=== PATIENT | male | born 1975 | race Caucasian/White ===

== ENCOUNTER 2019-09-20 19:35 | Inpatient (IN) | payer MEDICARE, OTHER ==
[~2019-09-20] VITALS: Ht 188 cm; Wt 101.2 kg
[2019-09-20] MEDS ORDERED: methylPREDNISolone SOD SUCC 125 MG/2 ML VL IV ONE (20:15)
[2019-09-20] MEDS ORDERED: cefTRIAXone 1GM/50ML D5W 50 ML IV ONE (21:30)
[2019-09-20 22:00] LABS: Basophils # (auto) 0 10 ^3/uL (0-0.2); Basophils % (auto) 0.3 % (0.0-2.0); Eosinophils # (auto) 0.2 10 ^3/uL (0-0.8); Eosinophils % (auto) 1.3 % (0.0-7.0); Hematocrit 39.7 % (41.0-53.0); Hemoglobin 13.7 g/dL (13.5-17.5); Lymphocytes % (auto) 7.5 % (10.0-50.0); Mean Corpuscular Hemoglobin 32.3 pg (28.0-32.0); Mean Corpuscular Hgb Conc. 34.5 g/dL (32.0-36.0); Mean Corpuscular Volume 93.5 fL (80.0-100.0); Monocytes # (auto) 0.7 10 ^3/uL (0-1.3); Neutrophils # (auto) 11.9 10 ^3/uL (1.6-8.6); Neutrophils % (auto) 85.9 % (37.0-80.0); Nucleated Red Blood Cells % 0.1 %; Platelet Count (auto) 365 10^3/uL (140-450); Red Blood Cells 4.25 10^6/uL (4.5-5.90); Red Cell Distribution Width 14.2 % (11.8-14.3); White Blood Cell 13.9 10^3/uL (4.4-10.8)
[2019-09-20 22:10] LABS: Alanine Aminotransferase 21 U/L (16-61); Anion Gap 7 (5-15); BUN/Creatinine Ratio 12.4; Blood Urea Nitrogen 11 mg/dL (7-18); Calcium 9.1 mg/dL (8.5-10.1); Carbon Dioxide 29 mmol/L (21-32); Chloride 96 mmol/L (98-107); GFR African American 120 mL/min; GFR Non-African American 99 mL/min; Glucose 95 mg/dL (74-106); Potassium 3.8 mmol/L (3.5-5.1); Sodium 132 mmol/L (136-145)
[2019-09-20 22:17] LABS: Alkaline Phosphatase 91 U/L (45-117); Aspartate Aminotransferase 37 U/L (15-37); Bilirubin, Total 0.6 mg/dL (0.2-1.0); Total Protein 7.8 g/dL (6.4-8.2)
[2019-09-20] MEDS ORDERED: ACETAMINOPHEN 325 MG TAB PO PRN (22:30)
[2019-09-20] MEDS ORDERED: ALBUTEROL SULF 2.5 MG/0.5ML(0.5%) NEB SOLN NEB PRN (22:30)
[2019-09-20] MEDS ORDERED: ONDANSETRON HCL 4 MG/2 ML VIAL IV PRN (22:30)
[2019-09-20] MEDS ORDERED: IPRATROPIUM BROM 0.5 MG/2.5ML INH SOL NEB PRN (22:30)
[2019-09-20] MEDS: HYDROcodone-ACET 5/325MG TAB PO PRN (23:42)
[2019-09-21] VITALS (7 sets, daily range): BP systolic 129–147; BP diastolic 68–87
[2019-09-21] MEDS ORDERED: ASPI81CH43 PO (00:01)
[2019-09-21] MEDS ORDERED: METO-169 PO (00:01)
[2019-09-21] MEDS ORDERED: LISI-706 PO (00:01)
[2019-09-21] MEDS ORDERED: DIVA500T13 PO (06:06)
[2019-09-21] MEDS ORDERED: ROSU20TA14 PO (06:06)
[2019-09-21] MEDS ORDERED: CHOL20007 PO (06:06)
[2019-09-21] MEDS ORDERED: QUET50TA25 PO (06:06)
[2019-09-21] MEDS ORDERED: METO-5 PO (06:06)
[2019-09-21] MEDS ORDERED: VARE1PAK12 PO (06:06)
[2019-09-21 07:35] LABS: Basophils # (auto) 0 10 ^3/uL (0-0.2); Basophils % (auto) 0.1 % (0.0-2.0); Eosinophils # (auto) 0 10 ^3/uL (0-0.8); Hematocrit 42.4 % (41.0-53.0); Hemoglobin 14.5 g/dL (13.5-17.5); Lymphocytes % (auto) 7.9 % (10.0-50.0); Mean Corpuscular Hemoglobin 32.1 pg (28.0-32.0); Mean Corpuscular Hgb Conc. 34.2 g/dL (32.0-36.0); Mean Corpuscular Volume 93.9 fL (80.0-100.0); Monocytes # (auto) 0.5 10 ^3/uL (0-1.3); Neutrophils # (auto) 11.6 10 ^3/uL (1.6-8.6); Nucleated Red Blood Cells % 0.1 %; Platelet Count (auto) 384 10^3/uL (140-450); Red Blood Cells 4.52 10^6/uL (4.5-5.90); Red Cell Distribution Width 14.4 % (11.8-14.3); White Blood Cell 13.2 10^3/uL (4.4-10.8)
[2019-09-21 07:53] LABS: BUN/Creatinine Ratio 17.6; Calcium 10.5 mg/dL (8.5-10.1); Potassium 4.6 mmol/L (3.5-5.1)
[2019-09-21] MEDS ORDERED: HYDR-4833 PO (08:00)
[2019-09-21] MEDS: HYDROcodone-ACET 5/325MG TAB PO PRN (08:03)
[2019-09-21] MEDS: FAMOTIDINE 20 MG TAB PO SCH ×2 (08:03→11:30)
[2019-09-21] MEDS: cefTRIAXone 1GM/50ML D5W 50 ML IV SCH (08:03)
[2019-09-21] MEDS: AZITHROMYCIN 500MG/ 250ML 250 ML IV SCH (11:30)
[2019-09-21] MEDS ORDERED: QUEtiapine FUMARATE 25 MG TAB PO ONE (11:30)
[2019-09-21] MEDS ORDERED: METOPROLOL SUCCINATE XL 50 MG TAB PO ONE (11:30)
[2019-09-21] MEDS ORDERED: ASPirin 81 mg TAB PO ONE (11:30)
[2019-09-21] MEDS ORDERED: LISINOPRIL 20 MG TAB PO ONE (11:30)
[2019-09-21] MEDS ORDERED: HCTZ 25 MG TAB PO ONE (11:30)
[2019-09-21] MEDS ORDERED: ZINC SULFATE 220mg CAP or TAB PO ONE (11:45)
[2019-09-21 11:57] LABS: Magnesium 2.8 mg/dL (1.6-2.6)
[2019-09-21] MEDS ORDERED: ENOXAPARIN SOD 120 MG/0.8 ML SYRINGE SC ONE (12:00)
[2019-09-21] MEDS: HYDROcodone-ACET 10/325MG TAB PO PRN ×2 (12:18→20:20)
[2019-09-21] MEDS ORDERED: ALBUTEROL SULF HFA 90MCG INH 200DOSE IN SCH (14:00)
[2019-09-21] MEDS ORDERED: IOHEXOL 350 MG/ML 100ML IJ ONE (18:16)
[2019-09-21 18:41] LABS: Urine WBC None Seen /hpf (0 - 3)
[2019-09-21 18:51] LABS: Urine Bacteria NONE SEEN /hpf (None Seen); Urine Blood Negative /uL (Negative); Urine Mucus FEW (None Seen); Urine Specific Gravity 1.008 (1.001-1.035)
[2019-09-21 19:07] LABS: Amphetamine Screen, Urine NEGATIVE (NEGATIVE); Barbiturate Scree,Urine NEGATIVE (NEGATIVE); Benzodiazephine Screen, Urine NEGATIVE (NEGATIVE); Cannabinoid Screen, Urine NEGATIVE (NEGATIVE); Cocaine Screen, Urine NEGATIVE (NEGATIVE); Opiate Scree,Urine NEGATIVE (NEGATIVE); Phencyclidine Screen, Urine NEGATIVE (NEGATIVE)
[2019-09-21] MEDS: QUEtiapine FUMARATE 25 MG TAB PO SCH (22:00)
[2019-09-21] MEDS: ENOXAPARIN SOD 120 MG/0.8 ML SYRINGE SC SCH (22:12)
[2019-09-21] MEDS: TEMAZEPAM 15 MG CAP PO PRN (22:12)
[2019-09-22] MEDS: HYDROcodone-ACET 10/325MG TAB PO PRN ×5 (02:46→22:02)
[2019-09-22 05:00] VITALS: BP 142/83
[2019-09-22] MEDS: IPRATROPIUM BROM 0.5 MG/2.5ML INH SOL NEB SCH ×4 (06:24→18:00)
[2019-09-22] MEDS: ALBUTEROL SULF 2.5 MG/0.5ML(0.5%) NEB SOLN NEB SCH ×4 (06:24→18:00)
[2019-09-22 08:26] LABS: Hematocrit 42.1 % (41.0-53.0); Hemoglobin 14.4 g/dL (13.5-17.5); Mean Corpuscular Hemoglobin 31.9 pg (28.0-32.0); Mean Corpuscular Hgb Conc. 34.3 g/dL (32.0-36.0); Mean Corpuscular Volume 93.2 fL (80.0-100.0); Platelet Count (auto) 434 10^3/uL (140-450); Red Blood Cells 4.52 10^6/uL (4.5-5.90); Red Cell Distribution Width 14.1 % (11.8-14.3); White Blood Cell 13.7 10^3/uL (4.4-10.8)
[2019-09-22 08:41] LABS: Band Neutrophils % (manual) 0; Basophils % (manual) 0 (0.0-2.0); Blast Cells 0; Metamyelocytes % 0; Myelocytes % 0; Promyelocytes % 0; Reactive Lymphocytes 0
[2019-09-22 08:43] LABS: Albumin 3.2 g/dL (3.4-5.0); Calcium 9.9 mg/dL (8.5-10.1); Magnesium 2.6 mg/dL (1.6-2.6); Potassium 3.8 mmol/L (3.5-5.1)
[2019-09-22 08:48] LABS: Bilirubin, Total 0.4 mg/dL (0.2-1.0); Total Protein 8.3 g/dL (6.4-8.2)
[2019-09-22 09:06] VITALS: BP 116/54
[2019-09-22] MEDS ORDERED: HCTZ 25 MG TAB PO SCH (10:00)
[2019-09-22 10:21] LABS: Eosinophils % (manual) 1 (0-7); Lymphocytes % (manual) 23 (10.0-50.0); Monocytes % (manual) 5 (0-12)
[2019-09-22] MEDS: cefTRIAXone 1GM/50ML D5W 50 ML IV SCH (10:52)
[2019-09-22] MEDS: ENOXAPARIN SOD 120 MG/0.8 ML SYRINGE SC SCH (10:54)
[2019-09-22] MEDS: DexAMETHasone SOD PHOS 4 MG/1ML SDV INJ IV SCH (10:54)
[2019-09-22] MEDS: ZINC SULFATE 220mg CAP or TAB PO SCH (10:55)
[2019-09-22] MEDS: CHOLECALCIFEROL (VITD3) 1,000IU=25mCg TAB PO SCH (10:55)
[2019-09-22] MEDS: ASPirin 81 mg TAB PO SCH (10:55)
[2019-09-22] MEDS: FAMOTIDINE 20 MG TAB PO SCH ×2 (10:55→22:00)
[2019-09-22] MEDS: ASCORBIC ACID 500 MG TAB PO SCH (10:56)
[2019-09-22] MEDS: LISINOPRIL 20 MG TAB PO SCH (10:59)
[2019-09-22] MEDS: METOPROLOL SUCCINATE XL 50 MG TAB PO SCH (10:59)
[2019-09-22] MEDS: AZITHROMYCIN 500MG/ 250ML 250 ML IV SCH (10:59)
[2019-09-22] MEDS: QUEtiapine FUMARATE 25 MG TAB PO SCH ×2 (11:00→22:01)
[2019-09-22 12:07] VITALS: BP 133/82
[2019-09-22] MEDS ORDERED: levoFLOXacin 750MG 150 ML IV ONE (12:30)
[2019-09-22 16:59] VITALS: BP_SYST 137; BP_SYST 161; BP_DIAS 72; BP_DIAS 75; BP_DIAS 92
[2019-09-22] MEDS: LIDOCAINE 5% TOPICAL PATCH TOP SCH (17:10)
[2019-09-22 22:00] VITALS: BP 124/69
[2019-09-22] MEDS: TEMAZEPAM 15 MG CAP PO PRN (22:02)
[2019-09-23] MEDS: ALBUTEROL SULF 2.5 MG/0.5ML(0.5%) NEB SOLN NEB SCH ×5 (00:17→18:53)
[2019-09-23] MEDS: IPRATROPIUM BROM 0.5 MG/2.5ML INH SOL NEB SCH ×5 (00:18→18:53)
[2019-09-23 05:00] VITALS: BP 132/73
[2019-09-23] MEDS: HYDROcodone-ACET 10/325MG TAB PO PRN ×4 (05:06→19:17)
[2019-09-23 05:31] LABS: Hematocrit 42.6 % (41.0-53.0); Hemoglobin 14.5 g/dL (13.5-17.5); Mean Corpuscular Hgb Conc. 34.1 g/dL (32.0-36.0); Mean Corpuscular Volume 93.8 fL (80.0-100.0); Platelet Count (auto) 434 10^3/uL (140-450); Red Blood Cells 4.54 10^6/uL (4.5-5.90); Red Cell Distribution Width 14.3 % (11.8-14.3); White Blood Cell 14.1 10^3/uL (4.4-10.8)
[2019-09-23 05:40] LABS: Basophils % (manual) 0 (0.0-2.0); Blast Cells 0; Metamyelocytes % 0; Myelocytes % 0; Promyelocytes % 0; Reactive Lymphocytes 0
[2019-09-23 05:53] LABS: BUN/Creatinine Ratio 28.1; Calcium 10.1 mg/dL (8.5-10.1); Magnesium 2.8 mg/dL (1.6-2.6); Potassium 4.1 mmol/L (3.5-5.1)
[2019-09-23 06:49] LABS: Band Neutrophils % (manual) 7; Eosinophils % (manual) 1 (0-7); Lymphocytes % (manual) 22 (10.0-50.0); Monocytes % (manual) 9 (0-12)
[2019-09-23] MEDS ORDERED: oxyCODONE ER 10 MG TAB PO PRN (08:45)
[2019-09-23 09:00] VITALS: BP 161/101
[2019-09-23] MEDS: ENOXAPARIN SOD 40 MG/0.4 ML SYRINGE SC SCH (10:00)
[2019-09-23 10:51] LABS: Hepatitis A Ab IgM Negative; Hepatitis B Core IgM Negative
[2019-09-23 10:52] LABS: Hepatitis B Surface Antigen Negative (Negative); Hepatitis C Antibody Negative (Negative)
[2019-09-23] MEDS: LIDOCAINE 5% TOPICAL PATCH TOP SCH (10:57)
[2019-09-23] MEDS: levoFLOXacin 750MG 150 ML IV SCH (10:58)
[2019-09-23] MEDS: FAMOTIDINE 20 MG TAB PO SCH ×2 (10:59→22:04)
[2019-09-23] MEDS: LISINOPRIL 20 MG TAB PO SCH (11:00)
[2019-09-23] MEDS: QUEtiapine FUMARATE 25 MG TAB PO SCH ×2 (11:00→22:04)
[2019-09-23] MEDS: oxyCODONE ER 10 MG TAB PO SCH ×2 (11:01→22:05)
[2019-09-23] MEDS: ASCORBIC ACID 500 MG TAB PO SCH (11:01)
[2019-09-23] MEDS: METOPROLOL SUCCINATE XL 50 MG TAB PO SCH (11:02)
[2019-09-23] MEDS: CHOLECALCIFEROL (VITD3) 1,000IU=25mCg TAB PO SCH (11:02)
[2019-09-23] MEDS: ASPirin 81 mg TAB PO SCH (11:03)
[2019-09-23] MEDS: DexAMETHasone SOD PHOS 4 MG/1ML SDV INJ IV SCH (11:05)
[2019-09-23] MEDS: ZINC SULFATE 220mg CAP or TAB PO SCH (11:11)
[2019-09-23 13:00] VITALS: BP 121/81
[2019-09-23 17:00] VITALS: BP 119/67
[2019-09-23 21:28] VITALS: BP 130/88
[2019-09-23] MEDS: TEMAZEPAM 15 MG CAP PO PRN (22:05)
[2019-09-24 03:28] VITALS: BP 130/88
[2019-09-24] MEDS: HYDROcodone-ACET 10/325MG TAB PO PRN ×5 (04:49→21:48)
[2019-09-24 05:00] VITALS: BP 133/88
[2019-09-24] MEDS: IPRATROPIUM BROM 0.5 MG/2.5ML INH SOL NEB SCH ×5 (06:21→22:21)
[2019-09-24] MEDS: ALBUTEROL SULF 2.5 MG/0.5ML(0.5%) NEB SOLN NEB SCH ×5 (06:22→22:21)
[2019-09-24 07:44] LABS: CRP High Sensitivity 3.73 mg/dL (< 0.3)
[2019-09-24 09:00] VITALS: BP 127/82
[2019-09-24] MEDS: ENOXAPARIN SOD 40 MG/0.4 ML SYRINGE SC SCH (10:00)
[2019-09-24] MEDS: LIDOCAINE 5% TOPICAL PATCH TOP SCH (10:15)
[2019-09-24] MEDS: levoFLOXacin 750MG 150 ML IV SCH (10:15)
[2019-09-24] MEDS: DexAMETHasone SOD PHOS 4 MG/1ML SDV INJ IV SCH (10:16)
[2019-09-24] MEDS: ASCORBIC ACID 500 MG TAB PO SCH (10:17)
[2019-09-24] MEDS: METOPROLOL SUCCINATE XL 50 MG TAB PO SCH (10:18)
[2019-09-24] MEDS: ASPirin 81 mg TAB PO SCH (10:19)
[2019-09-24] MEDS: ZINC SULFATE 220mg CAP or TAB PO SCH (10:19)
[2019-09-24] MEDS: oxyCODONE ER 10 MG TAB PO SCH ×2 (10:20→21:47)
[2019-09-24] MEDS: QUEtiapine FUMARATE 25 MG TAB PO SCH ×2 (10:20→21:47)
[2019-09-24] MEDS: FAMOTIDINE 20 MG TAB PO SCH ×2 (10:20→21:47)
[2019-09-24] MEDS: CHOLECALCIFEROL (VITD3) 1,000IU=25mCg TAB PO SCH (10:21)
[2019-09-24] MEDS: LISINOPRIL 20 MG TAB PO SCH (10:31)
[2019-09-24 13:00] VITALS: BP 122/73
[2019-09-24 17:00] VITALS: BP 111/65
[2019-09-24 22:00] VITALS: BP 127/69
[2019-09-25] MEDS: HYDROcodone-ACET 10/325MG TAB PO PRN ×2 (04:41→09:52)
[2019-09-25 05:00] VITALS: BP 122/67
[2019-09-25] MEDS: ALBUTEROL SULF 2.5 MG/0.5ML(0.5%) NEB SOLN NEB SCH ×2 (06:54→13:22)
[2019-09-25] MEDS: IPRATROPIUM BROM 0.5 MG/2.5ML INH SOL NEB SCH ×2 (06:54→13:22)
[2019-09-25 09:07] VITALS: BP 144/82
[2019-09-25] MEDS: ASPirin 81 mg TAB PO SCH (09:28)
[2019-09-25] MEDS: FAMOTIDINE 20 MG TAB PO SCH (09:28)
[2019-09-25] MEDS: CHOLECALCIFEROL (VITD3) 1,000IU=25mCg TAB PO SCH (09:28)
[2019-09-25] MEDS: ZINC SULFATE 220mg CAP or TAB PO SCH (09:28)
[2019-09-25] MEDS: levoFLOXacin 750MG 150 ML IV SCH (09:29)
[2019-09-25] MEDS: LIDOCAINE 5% TOPICAL PATCH TOP SCH (09:29)
[2019-09-25] MEDS: METOPROLOL SUCCINATE XL 50 MG TAB PO SCH (09:30)
[2019-09-25] MEDS: ASCORBIC ACID 500 MG TAB PO SCH (09:30)
[2019-09-25] MEDS: LISINOPRIL 20 MG TAB PO SCH (09:30)
[2019-09-25] MEDS: oxyCODONE ER 10 MG TAB PO SCH (09:31)
[2019-09-25] MEDS: QUEtiapine FUMARATE 25 MG TAB PO SCH (09:31)
[2019-09-25] MEDS: DexAMETHasone SOD PHOS 4 MG/1ML SDV INJ IV SCH (09:39)
[2019-09-25] MEDS: ENOXAPARIN SOD 40 MG/0.4 ML SYRINGE SC SCH (10:00)
[2019-09-25] MEDS ORDERED: DOCUSATE SOD 100 MG CAP PO SCH (10:00)
[2019-09-25] MEDS ORDERED: LEVO500T21 PO (12:41)
[2019-09-25] MEDS ORDERED: ALBUAER3 IN (12:41)
[2019-09-25 12:57] VITALS: BP 104/71
[2019-09-25 13:30] VITALS: BP 144/82
[2019-09-25] MEDS ORDERED: SENNA 8.6 MG TAB PO SCH (22:00)
== END 2019-09-25 14:17 | disposition home or self-care (01) | DRG 871 ==
LOC: EDBD 19:35 → ER 19:35 → OVERFLOW 19:36 → EAST 09-21 01:28 → CENTRAL 09-21 13:31 → TELE-CENTR 09-21 13:46 → CENTRAL 09-21 19:07 → TELE-CENTR 09-21 19:22
PROVIDERS: ADMIT Nurse Practitioner; ATTEND Internal Medicine
DX: A41.9 Sepsis, unspecified organism (principal); J18.9 Pneumonia, unspecified organism; J45.41 Moderate persistent asthma with (acute) exacerbation; E44.0 Moderate protein-calorie malnutrition; E66.9 Obesity, unspecified; F17.210 Nicotine dependence, cigarettes, uncomplicated; G89.29 Other chronic pain; I10 Essential (primary) hypertension; M54.9 Dorsalgia, unspecified; Z86.711 Personal history of pulmonary embolism; Z20.828 Contact with and (suspected) exposure to other viral communicable diseases; Z68.29 Body mass index [BMI] 29.0-29.9, adult
CPT/HCPCS: 36415; 36600; 71045; 71275; 80048; 80053; 80074; 80307; 81001; 82728; 82805; 83036; 83605; 83615; 83735; 83880; 84443; 84484; 85007; 85025; 85027; 85379; 85652; 86141; 86703; 86738; 87040; 87070; 87205; 87278; 87804; 87880; 93005; 94640; 96365; 96375; G0378; J0696; J1100; J1956

== ENCOUNTER 2022-01-17 16:38 | Emergency (ER) | payer MEDICARE, OTHER ==
[~2022-01-17] VITALS: Ht 177.8 cm; Wt 90.0 kg
[~2022-01-17 16:38] MED LIST: ALBUAER3 IN; ASPI81CH43 PO; CHOL20007 PO; DIVA500T13 PO; HYDR-4833 PO; LEVO500T31 PO; LISI-706 PO; METO-289 PO; QUET50TA27 PO; ROSU20TA14 PO; VARE1PAK12 PO
[2022-01-17] MEDS ORDERED: KETOROLAC TROMETH 60MG/2ML VIAL IM ONE (20:30)
[2022-01-17] MEDS ORDERED: IBUP800T27 PO (20:32)
[2022-01-17 20:48] VITALS: BP 136/91
== END 2022-01-17 21:10 | disposition home or self-care (01) ==
LOC: ER 16:38
DX: M54.41 Lumbago with sciatica, right side (principal); I10 Essential (primary) hypertension; F17.210 Nicotine dependence, cigarettes, uncomplicated; M25.551 Pain in right hip; Z88.6 Allergy status to analgesic agent
CPT/HCPCS: 72100; 73502; 96372; 99284; J1885

== ENCOUNTER 2025-01-25 15:39 | Emergency (ER) | payer MEDICARE, OTHER ==
[~2025-01-25] VITALS: Ht 177.8 cm; Wt 95.9 kg
[~2025-01-25 15:39] MED LIST changes: +IBUP-1456 PO
[2025-01-25] MEDS: SILVER SULFADIAZINE 1 % TOPICAL CREAM 50GM TOP ONE ×2 (16:47→17:02)
[2025-01-25] MEDS: KETOROLAC TROMETH 30 MG/ML 1ML VIAL IM ONE (16:47)
[2025-01-25] MEDS: KETOROLAC TROMETH 30 MG/ML 1ML VIAL ONE (17:02)
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
[2025-01-25] MEDS ORDERED: HYDR-4902 PO (17:45)
[2025-01-25] MEDS ORDERED: AUG875T PO (17:45)
[2025-01-25 18:07] VITALS: BP 138/98; PULSE 102; RESP 16; TEMP 98.9; O2SAT 97
== END 2025-01-25 18:09 | disposition home or self-care (01) ==
LOC: ER 15:39
DX: T23.212A Burn of second degree of left thumb (nail), initial encounter (principal); T31.0 Burns involving less than 10% of body surface; I10 Essential (primary) hypertension; F17.210 Nicotine dependence, cigarettes, uncomplicated; Z79.82 Long term (current) use of aspirin; Z79.891 Long term (current) use of opiate analgesic; Z79.899 Other long term (current) drug therapy; X30.XXXA Exposure to excessive natural heat, initial encounter; Y93.E4 Activity, ironing; Y92.89 Other specified places as the place of occurrence of the external cause; Y99.8 Other external cause status
CPT/HCPCS: 96372; 99283; J1885